=== PATIENT | female | born 1990 | race Caucasian/White ===

== ENCOUNTER 2017-12-18 06:37 | Emergency (ER) | payer MEDICAID ==
--- NOTE | 2017-12-18 07:09 | ED Physician Chart ---
ED Chief Complaint/HPI - Patient Information Date Seen:: 12/18/17 Time Seen:: 06:55 Chief Complaint:: RECURRENCE OF SCIATIC BACK PAIN 3 DAYS AGO. History of Present Illness:: THIS 27 YEAR OLD FEMALE PRESENTS WITH GRADUAL ONSET OF SCIATIC BACK PAIN THAT RADIATES INTO THE RT LOWER EXTREMITY. The pain began 3 days ago when she was moving furniture. The patient has taken tramadol in the past with good results. She has run out of her current prescription and her Medi-Aleksander has . She rates the severity of the pain as an 8/10 which is consistent with prior episodes. She denies any fever, chills, or recent trauma. She has no dysuria, hematuria, or urinary frequency. Allergies:: Allergies Allergy/AdvReac Type Severity Reaction Status Date / Time No Known Allergies Allergy Verified 12/18/17 06:49 Vitals:: Vital Signs - 8 hr 12/18/17 06:40 Temp 98.4 F HR 89 RR 18 BP 125/75 O2 Sat % 100 ED Review of Systems - Review of Systems General/Constitutional: No fever, No chills, No weight loss, No weakness, No diaphoresis, No edema Skin: No skin lesions, No rash, No bruising, Other (has a deformed right big toenail from traumatic injury.) Head: No headache, No light-headedness Eyes: No loss of vision, No diplopia ENT: No earache, No nasal drainage, No sore throat, No tinnitus Neck: No neck pain, No swelling, No stiffness, No mass noted Pulmonary: No SOB, No cough, No sputum GI: No nausea, No vomiting, No diarrhea, No pain, No hematochezia G/U: No dysuria, No hematuria 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 T) ED Past Medical History - Past Medical History Obtainable: Yes Past Medical History: No significant medical hx, Other (SCIATICA, MIGRAINE HEADACHES) Social History: Non Smoker, No Alcohol Surgical History: Cholecystectomy, , other ( TUBAL LIGATION) Psychiatricy History: None Family Medical History - Family Member Father Ethnicity: Living Status: Still Living Hx Family Hypertension: Yes ED Assessment - Assessment General Assessment: CASE SUMMARY: tIS 27 YEAR OLD FEMALE HAS A PRIOR HISTORY OF SCIATIC INVOLVING THE RIGHT LOW BACK RADIATING DOWN GHE BACK OF THE RT LEG. THIS WAS PRECIPITATED BY LIFTING FURNITURE. SHE HAD NO ASSOCIATE WEAKNESS OR PARESTHESIASRI. NO RISK FACTORS FOR EPIDURAL ABSCESS. SHE HAD RUN OUT OF HER ULTRAM AND REQUESTED A REFILL TO TIDE HER OVER UNTIL SHE COULD SEE HER PRIMARY CARE DOCTOR. I WROTE HER A PRESCRIPTION FOR SIX OLD TRAM 50 MG TO BE TAKEN ON A TID SCHEDULE FOR SCIATIC NERVE PAIN. SHE WAS GIVEN THE USUAL PRECAUTIONS AGAINST MIXING IT WITH OUT MANJU, AND TAKING IT WITHIN SIX HOURS OF DRIVING HER ACTIVITIES REQUIRING ALERTNESS. DISCHARGED IN STABLE CONDITION. MDM LOW BACK PAIN: NOT EPIDURAL ABSCESS DUE TO NO FOCAL NEUROLOGIC DEFICIT AND NO RISK FACTORS FOR EPIDURAL ABSCESS. NO CAUDA EQUINA SYNDROME BASED ON THE PATIENT'S HISTORY AND PHYSICAL EXAMINATION. T ED Septic Shock - . Is Septic Shock (SBP<90, OR Lactate>4 mmol\L) present?: No - <6hrs of presentation: Vital Signs: Vital Signs - 8 hr 12/18/17 06:40 Temp 98.4 F HR 89 RR 18 BP 125/75 O2 Sat % 100 ED Discharge Plan - Patient Disposition Admit/Discharge/Transfer: PT DISCHARGED HOME Prescriptions: Tramadol HCl [Ultram] 50 mg PO TID PRN #6 tab PRN Reason: Pain (Severe) Instructions: Sciatica, [id number] Additional Instructions: Follow-up with primary MD as soon as possible. Take medications as prescribed.
== END 2017-12-18 08:00 | disposition home or self-care (01) ==
LOC: ER 06:37
DX: M54.31 Sciatica, right side (principal)
CPT/HCPCS: Z7502